=== PATIENT | female | born 1995 | race Two or more races ===

== ENCOUNTER 2018-10-07 11:30 | Emergency (ER) | payer OTHER ==
[~2018-10-07] VITALS: Ht 162.6 cm; Wt 59.0 kg
[~2018-10-07 11:30] MED LIST: ALBUTEROL2.5 MG/3 M IH; NO; SINGULAIR 10MG10 MG PO; SYMBICORT 16010.2 GM IH; ZITHROMAX200 MG/53 PO
[2018-10-07] MEDS ORDERED: TUSNEL CAPLET1 EACH (11:56)
[2018-10-07] MEDS ORDERED: SORBUGEN NR 15474 ML (11:57)
[2018-10-07] MEDS ORDERED: TUKOL (11:57)
== END 2018-10-07 13:57 | disposition home or self-care (01) ==
LOC: ER 11:30
DX: J40 Bronchitis, not specified as acute or chronic (principal)

== ENCOUNTER 2025-03-02 06:32 | Emergency (ER) | payer OTHER ==
[~2025-03-02] VITALS: Ht 162.6 cm; Wt 74.8 kg
[~2025-03-02 06:32] MED LIST changes: +SORBUGEN NR 15474 ML; +TUKOL; +TUSNEL CAPLET1 EACH
[2025-03-02] MEDS ORDERED: DEXAMETHAS0.5 MG/5 M PO (07:40)
[2025-03-02] MEDS ORDERED: XOPENEX HFA15 GM IH (07:40)
[2025-03-02] MEDS ORDERED: DEXAMETHAS0.5 MG/5 M (07:40)
[2025-03-02] MEDS ORDERED: ZYNCOF 400-201 EACH PO (07:41)
[2025-03-02] MEDS ORDERED: RAYOS5 MG PO (07:41)
[2025-03-02 07:43] VITALS: BP 120/84; O2SAT 96
[2025-03-02] MEDS ORDERED: LEVALBUTEROL HCL 1.25 MG/3 ML SOLUTION IH SCH (09:45)
[2025-03-02] MEDS ORDERED: IPRATROPIUM BROMIDE 0.5 MG/2.5 ML AMPUL.NEB IH SCH (09:45)
[2025-03-02 11:15] LABS: ALT/SGPT 15.0 U/L (12-78); AST/SGOT 11.0 U/L (15-37); BILIRUBIN TOTAL 0.73 mg/dL (0.3-1.2); BUN CREA RATIO 24.0 (7.0-25.0); CREATININE SERUM 0.72 mg/dL (0.55-1.02); GFR 95.77; GLOBULINA 3.9 G/DL (2.4-3.5); GLUCOSE FASTING 98.0 mg/dL (65-100); OSMOLALITY SERUM 283.0 MOSM/KG (275-295)
[2025-03-02 11:17] LABS: COVID-19 AG NEGATIVE (NEGATIVE)
[2025-03-02 11:56] LABS: BASO % 0.3 % (0.1-1.2); EOS # 0.00 (0.04-0.54); EOS % 0.0 % (0.7-7.0); LYMPH # 1.34 (1.18-3.74); LYMPH % 38.6 % (19.3-53.1); MEAN PLATELET VOLUME 11.40 fl (9.4-12.4); MONO # 0.46 (0.24-0.82); NEUT # 1.65 (1.56-6.13); NEUT % 47.5 % (34.0-71.1); RED CELL DISTRIBUTION WIDTH 12.0 % (11.6-14.4)
[2025-03-02 11:57] LABS: MONO % 13.3 % (4.7-12.5)
[2025-03-02] MEDS ORDERED: GILTUSS COUGH-118 M1 PO (13:05)
[2025-03-02] MEDS ORDERED: ACETAMINOPHEN500 M1 PO (13:05)
[2025-03-02] MEDS ORDERED: OSEL75CA PO (13:05)
[2025-03-02] MEDS ORDERED: OSELTAMIVIR PHOSPHATE 75 MG CAPSULE PO ONE (13:15)
[2025-03-02 13:47] LABS: BAND MAN 16.0 %; LYMPHOCYTE MAN 27.0 %; MONOCYTE MAN 9.0 %; NEUTROPHILS MAN 45.0 %
== END 2025-03-02 13:58 | disposition home or self-care (01) ==
LOC: ER 06:32
PROVIDERS: Preventive Medicine Public Health & General Preventive Medicine
DX: J10.1 Influenza due to other identified influenza virus with other respiratory manifestations (principal); Z20.822 Contact with and (suspected) exposure to COVID-19